=== PATIENT | male | born 1980 ===

== ENCOUNTER → 2016-12-19 | Outpatient (CLI) | payer OTHER ==
--- NOTE | 2016-12-19 15:33 | CARD ---
APPROVED REPORT INDICATION Chest Pain Reason : Patient complained of pain PROCEDURE The patient underwent an Exercise Stress Test using the Eugenio Protocol. Blood pressure, heart rate, a nd EKG were monitored. An Echocardiogram was performed by registered pharmacy technician in four stages in quad fashion. At peak stress four se lected images were obtained and placed side by side with resting images for comparison. STRESS ECHO FINDINGS The resting Echocardiogram showed normal left ventricular contractility with an estimated Ejection Fr action of about 60 %. Normal augmentation of myocardial wall segments using a 16 segment model. Test Type: Exercise Stress Nurse/Tech: Stefania Frye R.N. Test Indications: Chest pain, palpitations. Cardiac History and Allergies: SEE EMR Medications: SEE EMR Medical History: SEE EMR Resting ECG: SR Resting Heart Rate: 71 bpm Resting Blood Pressure: 125/49mmHg Pretest Chest Pain: None Nurse/Tech Notes S1, S2 lungs CTA, denied chest pain, SOA or dizziness. Consent: The procedure was explained to the patient in lay terms. Informed consent was witnessed. Gabe eout was entered into [employer]. History and Stress Test performed by Stefania Frye R.N. Stress Symptoms Tolerated well. POST EXERCISE Reason for Termination: Reached target heart rate Target HR: 156 Max HR: 185 bpm 101% of Maximum Predicted HR: 183 bpm Exercise duration: 10:54 min:sec, 4 Stage Exercise capacity: 12.8METs Max Blood Pressure: 148/55mmHg Blood Pressure response to exercise: Normal blood pressure response during stress. Heart Rate response to exercise: Normal Chest Pain: No. Arrhythmia: No. ST Change: No. INTERPRETATION Stress EKG Conclusion: No acute changes were noted. The patient's target heart rate was achieved. Preliminary Notification Critical Value: No <Conclusion> Good exercise capacity at 12.8 mets achieved. No evidence of exercise induced EKG changes. Normal resting wall motion and EF at 55% Normal stress wall motion and EF at > 70% Low risk study
== END | disposition home or self-care (01) ==
LOC: ECHO 12:24 → EEVIPCON 13:00
PROVIDERS: ATTEND Family Medicine Adult Medicine
DX: R07.9 Chest pain, unspecified (principal); R00.2 Palpitations
CPT/HCPCS: 93017; 93350